=== PATIENT | male | born 1980 | race African-American/Black ===

== ENCOUNTER 2017-09-11 21:22 | Emergency (ER) | payer OTHER ==
[~2017-09-11] VITALS: Ht 175.3 cm; Wt 70.0 kg
[~2017-09-11 21:22] MED LIST: ACYCLOVIR400 MG PO; AMOXIL500 M1 OR; ATUSS DS OR; NO HOME MEDS; PROMETHAZINE25 M1 RE
[2017-09-11 22:08] LABS: IMMATURE GRANULOCYTES 0.4 % (0.0-1.0); MEAN CELL VOLUME 88.4 fL CALC (80.0-100.0); MEAN CORPUSCULAR HGB 30.7 pG CALC (26.0-32.0); MEAN CORPUSCULAR HGB CONC 34.7 g/L CALC (32.0-36.0); NEUT# 8.43 thou/uL (1.82-7.42); RED BLOOD COUNT 5.54 mill/uL (4.70-6.10); RED CELL DISTRI WIDTH 12.4 % (11.5-15.5)
[2017-09-11 22:14] LABS: ALBUMIN 4.6 g/dL (3.2-5.0); ALKALINE PHOSPHATASE 64 u/l (38-126); ANION GAP 17 (6-22 (CALC)); BILIRUBIN, TOTAL 1.6 mg/dL (0.0-1.4); BUN 16 mg/dL (9-20); BUN/CREATININE RATIO 17 (12-20 (CALC)); CALCIUM 9.5 mg/dL (8.4-10.2); CARBON DIOXIDE 26 mmol/l (22-30); CHLORIDE 102 mmol/l (95-108); GFR > 60 ML/MIN (>=60 (CALC)); GFR FOR AFR.AMER. > 60 ML/MIN (>=60 (CALC)); GLUCOSE 127 mg/dL (75-110); POTASSIUM 3.6 mmol/l (3.5-5.1); SGOT/AST 33 u/l (17-59); SGPT/ALT 37 u/l (21-72); SODIUM 141 mmol/l (137-146); TOTAL PROTEIN 8.6 g/dL (6.3-8.2)
[2017-09-11] MEDS ORDERED: ZOFRAN ODT4 MG PO (22:41)
[2017-09-11 23:25] VITALS: BP 123/75
== END 2017-09-11 23:05 | disposition home or self-care (01) | DRG 866 ==
LOC: ED 21:22
PROVIDERS: Emergency Medicine
DX: B34.9 Viral infection, unspecified (principal)

== ENCOUNTER 2018-01-16 16:16 | Emergency (ER) | payer OTHER ==
[~2018-01-16] VITALS: Ht 175.3 cm; Wt 71.0 kg
[~2018-01-16 16:16] MED LIST changes: +ZOFRAN ODT4 MG PO
[2018-01-16] MEDS ORDERED: AMOXICILLIN500 M2 PO (16:26)
[2018-01-16 16:28] VITALS: BP 128/85
== END 2018-01-16 16:28 | disposition home or self-care (01) | DRG 153 ==
LOC: ED 16:16
DX: J02.9 Acute pharyngitis, unspecified (principal); R05 Cough; R50.9 Fever, unspecified